=== PATIENT | male | born 1965 | race Caucasian/White ===

== ENCOUNTER 2019-03-05 05:45 | Day surgery (SDC) | payer MEDICARE ==
[2019-03-05] MEDS ORDERED: DIPRIVAN 200 MG/20 ML IV ONE (05:46)
[2019-03-05] MEDS ORDERED: Lactated Ringers 1,000 ML IV ONE (06:40)
[2019-03-05] MEDS ORDERED: Lactated Ringers 1,000 ML IV SCH (07:00)
[2019-03-05 08:15] LABS: Hematocrit 46.4 % (42-50); Hemoglobin 15.7 gm/dl (12.5-18.0); Mean Cell Volume 89.6 fl (78-100); Mean Corpuscular Hemoglobin 30.3 pg (26-32); Mean Corpuscular Hgb Concent. 33.8 g/dl (32-36); Mean Platelet Volume 10.6 fl (6-9.5); Platelet Count 175 K/mm3 (150-450); Red Blood Count 5.18 M/mm3 (4.1-5.6); Red Cell Distribution Width 13.7 % (11.5-14.0); White Blood Count 13.9 K/mm3 (4.0-10.5)
[2019-03-05 08:36] VITALS: BP 121/84; PULSE 72; O2SAT 100
[2019-03-05 08:52] LABS: Appearance CLEAR (CLEAR); Bilirubin NEGATIVE (NEGATIVE); Blood SMALL Ery/ul (0-5); Glucose NEGATIVE (NEGATIVE); Ketones NEGATIVE (NEGATIVE); Leukocyte Esterase NEGATIVE (NEGATIVE); Nitrite NEGATIVE (NEGATIVE); Protein,Urine Dip NEGATIVE (Negative); RBC 0-2 /HPF (0-2); Specific Gravity 1.017 (1.005-1.025); Urobilinogen NEGATIVE mg/dL (0-1)
[2019-03-05 10:05] LABS: ALKALINE PHOSPHATASE 53 U/L (38-126); ANION GAP 14.6 MEQ/L (5-15); BLOOD UREA NITROGEN 13 mg/dL (9-20); CHLORIDE 100 mmol/L (98-107); Calcium 9.6 mg/dL (8.4-10.2); Carbon Dioxide 31 mmol/L (22-30); Cholesterol 95 mg/dL (50-200); Creatinine 1 0.72 mg/dL (0.66-1.25); Glucose 91 mg/dL (74-106); HDL CHOLESTEROL 32 mg/dL (40-60); LDL, DIRECT 52 mg/dL (30-100); SGOT/AST 13 U/L (17-59); SGPT/ALT 11 U/L (0-50); SODIUM 142 mmol/L (137-145); TRIGLYCERIDE 119 mg/dL (30-150); Total Protein 7.6 g/dL (6.3-8.2)
--- NOTE | 2019-03-05 13:13 | OP ---
SURGERY DATE/TIME: 03/05/2019 0726 PREOPERATIVE DIAGNOSIS: Dyspepsia. POSTOPERATIVE DIAGNOSIS: Moderate gastritis. PROCEDURE: Esophagogastroduodenoscopy with cold forceps biopsy. SURGEON: Dr. Munguia. ANESTHESIA: Medications were given by the anesthesia department. BRIEF HISTORY: The patient is a 53 year old white male patient presenting with complains of dyspepsia. He has been taking omeprazole without relief. It is also noted he is on ibuprofen. The patient was appraised of the risks of the procedure including the risk of perforation, phlebitis, untoward reaction to medication, bleeding and missed lesions. The patient verbalized his understanding and desired to have the procedure performed. DESCRIPTION OF PROCEDURE: The patient was given the medications by the anesthesia department. He had continuous pulse oximetry, ECG monitoring, intermittent blood pressure monitoring and tidal CO2 monitoring during the examination. He was placed in the left lateral decubitus position. A bite block was placed and the flexible Olympus gastroscope was used to intubate the oropharynx. A view of the larynx was obtained and was normal. The scope was easily passed in the esophagus which appeared to be normal throughout its length. The stomach was entered where normal gastric rugal folds were seen. The gastric schmidt was suctioned dry and the stomach was re-insufflated. The gastric rugal folds distended nicely with insufflation of air. There was noted to be patchy erythema throughout the body and fundus of the stomach. The scope was passed along the greater curvature of the stomach to the pylorus which was intubated. The duodenum inspected and found to be normal. The scope withdrawn towards the stomach. Again, a retroflex view was obtained and there appeared to be no hiatal hernia present. Cold forceps biopsy was used in the antrum to rule out the presence of Helicobacter pylori-type organisms and confirm the presence of gastritis. The scope was then removed from the patient who tolerated the procedure well and was sent back to outpatient recovery in good condition.
== END 2019-03-05 08:45 | disposition home or self-care (01) ==
LOC: SDC 05:45
PROVIDERS: ATTEND Family Medicine
DX: K29.70 Gastritis, unspecified, without bleeding (principal); R10.13 Epigastric pain; F81.9 Developmental disorder of scholastic skills, unspecified; Z79.899 Other long term (current) drug therapy; E16.2 Hypoglycemia, unspecified; R63.4 Abnormal weight loss; I10 Essential (primary) hypertension; Z12.5 Encounter for screening for malignant neoplasm of prostate
CPT/HCPCS: 36415; 43239; 80053; 80061; 81001; 83036; 83721; 84443; 85027; G0103; 88305; J2704